=== PATIENT | male | born 1975 | race African-American/Black ===

== ENCOUNTER 2018-03-08 08:00 | Emergency (ER) | payer OTHER ==
[~2018-03-08] VITALS: Ht 172.7 cm; Wt 73.5 kg
== END 2018-03-08 08:25 | disposition home or self-care (01) ==
LOC: ER 08:00
DX: S01.81XA Laceration without foreign body of other part of head, initial encounter (principal); W22.8XXA Striking against or struck by other objects, initial encounter; Y93.89 Activity, other specified; Y92.89 Other specified places as the place of occurrence of the external cause; Y99.8 Other external cause status
CPT/HCPCS: A4663